=== PATIENT | male | born 1950 | race Caucasian/White ===

== ENCOUNTER → 2020-11-01 | Outpatient (CLI) | payer OTHER | LOC: KOH-I 09:47 | DX: R29.6 Repeated falls (principal); M51.36 Other intervertebral disc degeneration, lumbar region; M47.816 Spondylosis without myelopathy or radiculopathy, lumbar region; R93.421 Abnormal radiologic findings on diagnostic imaging of right kidney | CPT/HCPCS: 70450; 72148 ==